=== PATIENT | male | born 1935 | race Asian ===

== ENCOUNTER 2016-08-02 20:26 | Inpatient (IN) | payer MEDICARE, OTHER ==
[~2016-08-02] VITALS: Ht 154.9 cm; Wt 49.8 kg
[~2016-08-02 20:26] MED LIST: ALLO100T PO; ASPI-825 PO; CARV3 PO; CLOP75TA32 PO; DOCU250C91 PO; FINA5TAB41 PO; FISH1CAP49 PO; LISI-662 PO; LORA10TA7 PO; MULT-1203 PO; NITR0.4T27 SL; RANI150C4 PO; RANO500T3 PO; SIMV40 PO; TAMS0.4C32 PO
[2016-08-02] MEDS ORDERED: TAMS0.4C32 PO (20:47)
[2016-08-02 21:26] LABS: BASOPHILS % (AUTO) 0.3 % (0.0-2.0); EOSINOPHILS % (AUTO) 6.6 % (1.0-6.0); HEMATOCRIT 41.3 % (41-53); HEMOGLOBIN 13.1 g/dL (13.5-17.5); LYMPHOCYTES # (AUTO) 2.3 K/uL (1.0-4.8); LYMPHOCYTES % (AUTO) 33.5 % (22.0-44.0); MEAN CORPUSCULAR HEMOGLOBIN 29.9 pg (26.0-34.0); MEAN CORPUSCULAR HGB CONC 31.7 G/dL (31.0-37.0); MEAN CORPUSCULAR VOLUME 94 fL (80-100); MONOCYTES # (AUTO) 0.6 K/uL (0.1-1.0); MONOCYTES % (AUTO) 8.9 % (2.0-9.0); NEUTROPHILS # (AUTO) 3.5 K/uL (1.8-7.7); NEUTROPHILS % (AUTO) 50.7 % (40.0-70.0); PLATELET COUNT (AUTO) 159 K/uL (150-450); RED BLOOD CELL COUNT(AUTO) 4.38 MIL/uL (4.50-5.90); RED CELL DISTRIBUTION WIDTH 14.7 % (11.5-14.5); WHITE BLOOD COUNT (AUTO) 6.8 K/uL (4.5-11.0)
[2016-08-02 21:27] LABS: CALCIUM, TOTAL 9.4 mg/dL (8.8-10.5); CREATININE 1.3 mg/dL (0.60-1.30); POTASSIUM 4.6 mmol/L (3.5-5.1)
[2016-08-02 21:31] LABS: ALBUMIN 3.9 g/dL (3.4-5.0); BILIRUBIN,TOTAL 0.3 mg/dL (0.1-1.0); TOTAL PROTEIN, SERUM 8.1 g/dL (6.4-8.2)
[2016-08-02] MEDS ORDERED: ACETAMINOPHEN 325 MG TABLET PO PRN (21:45)
[2016-08-02] MEDS ORDERED: MAGNESIUM HYDROXIDE SUSPENSION 30 ML UDCUP PO PRN (21:45)
[2016-08-02] MEDS ORDERED: OxyCODONE HCL/ACETAMINOPHEN 5-325 MG TABLET PO PRN (21:45)
[2016-08-02] MEDS ORDERED: NITROGLYCERIN 2% (1 GM=INCH) PACKET TP ONE (22:00)
[2016-08-02] MEDS ORDERED: TAMSULOSIN HCL 0.4 MG CAPSULE PO SCH (22:00)
[2016-08-02] MEDS ORDERED: CloNIDine HCL 0.1 MG TABLET PO PRN (22:00)
[2016-08-02] MEDS ORDERED: ASPIRIN 81 MG CHEWABLE TABLET PO ONE (22:00)
[2016-08-02] MEDS: AmLODIPine BESYLATE 10 MG TABLET PO SCH (22:01)
[2016-08-02] MEDS: SIMVASTATIN 40 MG TABLET PO SCH (22:02)
[2016-08-02 22:10] LABS: APPEARANCE,URINE CLEAR (CLEAR); GLUCOSE, URINE (UA) NEGATIVE (NEGATIVE); KETONES,URINE NEGATIVE (NEGATIVE); LEUKOCYTE ESTERASE ,URINE NEGATIVE (NEGATIVE); OCCULT BLOOD,URINE NEGATIVE (NEGATIVE); PH,URINE 6.5 (5.0-8.0); PROTEIN,URINE NEGATIVE (NEGATIVE)
[2016-08-02 22:15] LABS: ADD UA MICROSCOPIC NO
[2016-08-02 23:46] VITALS: BP 157/83
[2016-08-03 04:22] VITALS: BP 105/58
[2016-08-03 07:10] VITALS: BP 105/49
[2016-08-03] MEDS: AmLODIPine BESYLATE 10 MG TABLET PO SCH (08:43)
[2016-08-03] MEDS: CARVEDILOL 6.25 MG TABLET PO SCH ×2 (08:43→20:49)
[2016-08-03] MEDS: CLOPIDOGREL BISULFATE 75 MG TABLET PO SCH (08:44)
[2016-08-03] MEDS: DOCUSATE SODIUM 100 MG CAPSULE PO SCH ×2 (08:44→20:49)
[2016-08-03] MEDS: ASPIRIN 81 MG CHEWABLE TABLET PO SCH (08:44)
[2016-08-03] MEDS: PANTOPRAZOLE SODIUM 40 MG DR TABLET PO SCH (08:44)
[2016-08-03] MEDS ORDERED: LISINOPRIL 10 MG TABLET PO SCH (09:00)
[2016-08-03 11:07] VITALS: BP 119/65
[2016-08-03] MEDS ORDERED: BISACODYL 10 MG RECTAL RECTAL SUPPOSITORY PR PRN (11:15)
[2016-08-03 15:27] VITALS: BP 116/56
[2016-08-03 19:17] VITALS: BP 107/58
[2016-08-03] MEDS: SIMVASTATIN 40 MG TABLET PO SCH (20:49)
[2016-08-03 23:22] VITALS: BP 106/59
[2016-08-04 04:30] VITALS: BP 115/64
[2016-08-04 06:58] LABS: BASOPHILS % (AUTO) 0.4 % (0.0-2.0); EOSINOPHILS % (AUTO) 6.3 % (1.0-6.0); HEMATOCRIT 37.3 % (41-53); HEMOGLOBIN 11.9 g/dL (13.5-17.5); LYMPHOCYTES # (AUTO) 1.9 K/uL (1.0-4.8); LYMPHOCYTES % (AUTO) 27.5 % (22.0-44.0); MEAN CORPUSCULAR VOLUME 94 fL (80-100); MONOCYTES # (AUTO) 0.6 K/uL (0.1-1.0); MONOCYTES % (AUTO) 9.4 % (2.0-9.0); NEUTROPHILS # (AUTO) 3.8 K/uL (1.8-7.7); NEUTROPHILS % (AUTO) 56.4 % (40.0-70.0); PLATELET COUNT (AUTO) 134 K/uL (150-450); RED BLOOD CELL COUNT(AUTO) 3.97 MIL/uL (4.50-5.90); RED CELL DISTRIBUTION WIDTH 14.2 % (11.5-14.5); WHITE BLOOD COUNT (AUTO) 6.8 K/uL (4.5-11.0)
[2016-08-04 07:23] LABS: ALBUMIN 3.3 g/dL (3.4-5.0); BILIRUBIN,TOTAL 0.3 mg/dL (0.1-1.0); CALCIUM, TOTAL 8.8 mg/dL (8.8-10.5); CREATININE 1.27 mg/dL (0.60-1.30); POTASSIUM 4.2 mmol/L (3.5-5.1); TOTAL PROTEIN, SERUM 6.8 g/dL (6.4-8.2)
[2016-08-04 07:35] VITALS: BP 146/71
[2016-08-04] MEDS: ASPIRIN 81 MG CHEWABLE TABLET PO SCH (08:13)
[2016-08-04] MEDS: PANTOPRAZOLE SODIUM 40 MG DR TABLET PO SCH (08:13)
[2016-08-04] MEDS: CLOPIDOGREL BISULFATE 75 MG TABLET PO SCH (08:13)
[2016-08-04] MEDS: CARVEDILOL 6.25 MG TABLET PO SCH (08:13)
[2016-08-04] MEDS: DOCUSATE SODIUM 100 MG CAPSULE PO SCH (08:14)
[2016-08-04] MEDS ORDERED: LISINOPRIL 10 MG TABLET PO SCH (09:00)
== END 2016-08-04 12:30 | disposition home or self-care (01) | DRG 303 ==
LOC: EMS 20:29 → 5S 22:13
PROVIDERS: ADMIT Internal Medicine; ATTEND Internal Medicine
DX: I25.110 Atherosclerotic heart disease of native coronary artery with unstable angina pectoris (principal); I10 Essential (primary) hypertension; E78.5 Hyperlipidemia, unspecified; N40.0 Benign prostatic hyperplasia without lower urinary tract symptoms; I25.2 Old myocardial infarction; Z95.5 Presence of coronary angioplasty implant and graft
CPT/HCPCS: 70450; 71020; 83735; 93005; 93306; 99285

== ENCOUNTER 2017-08-26 10:23 | Emergency (ER) | payer MEDICARE, OTHER ==
[~2017-08-26] VITALS: Ht 154.9 cm; Wt 50.9 kg
[~2017-08-26 10:23] MED LIST changes: -ALLO100T PO; -ASPI-825 PO; -FISH1CAP49 PO; -LORA10TA7 PO; -NITR0.4T27 SL; -RANO500T3 PO; +SIMV-261 PO; -SIMV40 PO
[2017-08-26] MEDS ORDERED: ALLO100T PO (10:35)
[2017-08-26] MEDS ORDERED: SENN-178 PO (10:35)
[2017-08-26] MEDS ORDERED: ATOR10TA84 PO (10:35)
[2017-08-26] MEDS ORDERED: VITAD1000 PO (10:35)
[2017-08-26 11:06] VITALS: BP 151/73
[2017-08-26] MEDS ORDERED: METHOCARBAMOL 500 MG TABLET PO ONE (11:30)
[2017-08-26] MEDS ORDERED: CARV6 PO (11:33)
[2017-08-26] MEDS ORDERED: DEXAMETHASONE 4 MG TABLET PO ONE (11:45)
== END 2017-08-26 12:02 | disposition home or self-care (01) ==
LOC: EMS 10:24
DX: G57.02 Lesion of sciatic nerve, left lower limb (principal); I10 Essential (primary) hypertension; I25.10 Atherosclerotic heart disease of native coronary artery without angina pectoris; E11.9 Type 2 diabetes mellitus without complications; E78.00 Pure hypercholesterolemia, unspecified; I25.2 Old myocardial infarction
CPT/HCPCS: 99283; J8540

== ENCOUNTER 2019-09-06 16:38 | Emergency (ER) | payer MEDICARE, OTHER ==
[~2019-09-06] VITALS: Ht 154.9 cm; Wt 52.7 kg
[~2019-09-06 16:38] MED LIST changes: +ALLO100T PO; +ATOR10TA84 PO; -CARV3 PO; +CARV6 PO; +CHOL100018 PO; +DOCU-342 PO; -DOCU250C91 PO; +FINA-27 PO; -FINA5TAB41 PO; -MULT-1203 PO; +SENN-178 PO; -SIMV-261 PO; +TAMS-13 PO; -TAMS0.4C32 PO
[2019-09-06] MEDS ORDERED: BACITRACIN 0.9 GM PACKET OINTMENT TP ONE (18:00)
[2019-09-06 18:22] VITALS: BP 166/86
== END 2019-09-06 18:50 | disposition home or self-care (01) ==
LOC: EMS 16:42
DX: G89.18 Other acute postprocedural pain (principal); I25.10 Atherosclerotic heart disease of native coronary artery without angina pectoris; E11.9 Type 2 diabetes mellitus without complications; E78.00 Pure hypercholesterolemia, unspecified; I25.2 Old myocardial infarction; Z87.821 Personal history of retained foreign body fully removed; Z79.899 Other long term (current) drug therapy
CPT/HCPCS: 96372; 99284; J0690

== ENCOUNTER 2021-04-18 09:09 | Emergency (ER) | payer MEDICARE, OTHER ==
[~2021-04-18] VITALS: Ht 154.9 cm; Wt 50.0 kg
[~2021-04-18 09:09] MED LIST changes: -ALLO100T PO; +ALLO100T2 PO; +AMLO2.5T96 PO; -ATOR10TA84 PO; +BISA10SU11 PR; -CARV6 PO; +CHOL-35 PO; -CHOL100018 PO; +DICL100G59 TP; -DOCU-342 PO; +DOCU-350 PO; +FAMO20 PO; +IBUP-1506 PO; +ISOS30TA92 PO; -LISI-662 PO; +MAGN250T29 PO; +MECL-160 PO; +METO-558 PO; +POLY17PO47 PO; -RANI150C4 PO; +ROSU20TA73 PO; +SARN225L TP; +TRIA15CR49 TP
[2021-04-18 09:57] LABS: BASOPHILS % (AUTO) 0.6 % (0.0-2.0); HEMATOCRIT 38.5 % (41-53); HEMOGLOBIN 12.7 g/dL (13.5-17.5); LYMPHOCYTES # (AUTO) 1.3 K/uL (1.0-4.8); LYMPHOCYTES % (AUTO) 24.9 % (22.0-44.0); MEAN CORPUSCULAR HEMOGLOBIN 30.8 pg (26.0-34.0); MEAN CORPUSCULAR HGB CONC 33.1 G/dL (31.0-37.0); MEAN CORPUSCULAR VOLUME 93 fL (80-100); MONOCYTES # (AUTO) 0.5 K/uL (0.1-1.0); MONOCYTES % (AUTO) 9.3 % (2.0-9.0); NEUTROPHILS # (AUTO) 2.9 K/uL (1.8-7.7); NEUTROPHILS % (AUTO) 56.2 % (40.0-70.0); PLATELET COUNT (AUTO) 162 K/uL (150-450); RED BLOOD CELL COUNT(AUTO) 4.14 MIL/uL (4.50-5.90); RED CELL DISTRIBUTION WIDTH 14.4 % (11.5-14.5)
[2021-04-18 10:05] LABS: CALCIUM, TOTAL 9.8 mg/dL (8.8-10.5); CREATININE 1.71 mg/dL (0.60-1.30)
[2021-04-18 11:02] VITALS: BP 148/74
== END 2021-04-18 11:50 | disposition home or self-care (01) ==
LOC: EMS 09:09
DX: R55 Syncope and collapse (principal); I25.10 Atherosclerotic heart disease of native coronary artery without angina pectoris; E11.9 Type 2 diabetes mellitus without complications; E78.00 Pure hypercholesterolemia, unspecified; I10 Essential (primary) hypertension; I25.2 Old myocardial infarction
CPT/HCPCS: 71045; 80048; 85025; 93005; 99285; 36415-L1; 36415-TC